=== PATIENT | male | born 1995 | race Caucasian/White ===

== ENCOUNTER 2025-01-20 05:04 | Emergency (ER) | payer OTHER ==
[~2025-01-20] VITALS: Ht 172.7 cm; Wt 79.0 kg
[2025-01-20 05:08] VITALS: BP 96/55; PULSE 114; RESP 14; TEMP 36.7; O2SAT 99
== END 2025-01-20 05:40 | disposition home or self-care (01) ==
LOC: ER 05:04
DX: R56.9 Unspecified convulsions (principal)
CPT/HCPCS: 99283